=== PATIENT | female | born 1970 ===

== ENCOUNTER 2016-10-14 21:47 | Emergency (ER) | payer OTHER ==
[2016-10-14 21:48] VITALS: BMI 26.2
== END 2016-10-14 23:10 | disposition left against medical advice (07) ==
LOC: C.ER 21:47
DX: R11.10 Vomiting, unspecified (principal); Z02.9 Encounter for administrative examinations, unspecified

== ENCOUNTER 2016-10-20 12:48 | Day surgery (SDC) | payer OTHER ==
[2016-10-14 22:26] VITALS: BMI 26.2
[2016-10-20] MEDS ORDERED: Midazolam 2 MG/2 ML VIAL ONE ×2 (16:22→17:37)
[2016-10-20] MEDS ORDERED: Lidocaine Hydrochloride 0 ML INJ ONE ×2 (16:42→16:53)
[2016-10-20] MEDS ORDERED: Iohexol 350mg/ml 100 ML ONE (18:07)
[2016-10-20 20:40] VITALS: O2SAT 97
[2016-10-20 22:03] VITALS: BP 125/94; PULSE 79; RESP 18; TEMP 97.9
--- NOTE | 2016-10-21 00:14 | CATH ---
APPROVED REPORT CASE TECHNIQUE The patient was brought electively to the Cardiac Catheterization Laboratory in a fasting state and was prepped and draped in a sterile manner. The right femoral groin was infiltrated with 2% Lidocaine subcutaneous anesthesia. A sheath was inserted into the right femoral artery without difficulty. Coronary angiography was performed using coronary diagnostic catheters. The left coronary system was accessed and visualized with a Diagnostic catheter. The right coronary system was accessed and visualized with a Diagnostic catheter. The left ventricle was accessed and visualized with a Diagnostic catheter. Left ventricular/Aortic Valve gradient assessed on pullback. Left ventriculogram was performed in MARX projection. An aortogram of the descending aortaabdominal aortafemoral artery was performed. Pre-demployment femoral angiogram was performed . Closure device was deployed with a 6 Fr Angioseal without any complications. Vessel Analysis The patient's coronary anatomy is right dominant. The left main coronary artery is a large size vessel without stenosis. The left main bifurcates to the left anterior descending and circumflex. The left anterior descending artery is a large size vessel without stenosis. The first diagonal branch is a medium size vessel without stenosis. The second diagonal branch is a small size vessel without stenosis. The circumflex artery is a large size vessel without stenosis. The first obtuse marginal branch is a medium size vessel without stenosis. The second obtuse marginal branch is a medium size vessel without stenosis. The right coronary artery is a large size vessel without stenosis. The right posterior descending artery is a medium size vessel without stenosis. The right posterolateral branch is a medium size vessel without stenosis. Left Ventricle The left ventricular ejection fraction is estimated to be 65%. There was no gradient across the aortic valve upon pullback. Aorta DECENDING THORACIC AORTOGRAPHY, ABDOMINAL AORTOGRAPHY AND B/L FEMORAL ANGIOGRAPHY DO NOT REVEAL ANY SIGNIFICANT STENOSIS. THIS WAS PERFORMED PT HAD WEAK THREADY PULSES B/L FEMORAL REGIONS. Conclusion RIGHT DOMINANT SYSTEM NO SIG OBSTRUCTIVE CAD NO SIG STENOTIC LESIONS OF CENTRAL VESSELS EF 65 ANGIOSEAL TO FA PT TOLERATED WELL. NO COMPLICATIONS. Recommendations Cardiac Risk Reduction Program Medical Therapy
== END 2016-10-20 21:50 | disposition short-term general hospital (02) ==
LOC: C.CATHLAB 12:48
PROVIDERS: ATTEND Internal Medicine Cardiovascular Disease
DX: I25.10 Atherosclerotic heart disease of native coronary artery without angina pectoris (principal)
CPT/HCPCS: 93452; 94770; J1644; J2250; J2930; J3010; Q9967